=== PATIENT | female | born 1975 | race Hispanic/Latino ===

== ENCOUNTER → 2022-08-19 | Day surgery (SDC) | payer SELFPAY ==
[~2022-08-19] VITALS: Ht 144.8 cm; Wt 54.4 kg
[~2022-08-19] MED LIST: LIPITOR20 M1 PO; VITAMIN D22000 UNIT PO
[2022-08-19 11:23] VITALS: BP 121/68
== END | disposition home or self-care (01) | DRG 379 ==
LOC: ENDO 08:23 → ORM 09:00 → ENDO 10:10 → ORM 10:20 → ENDO 10:20
PROVIDERS: ATTEND Surgery
PROC: 0DJD8ZZ Inspection of Lower Intestinal Tract, Via Natural or Artificial Opening Endoscopic (ICD-10-PCS; principal; 2022-08-19)
DX: K57.31 Diverticulosis of large intestine without perforation or abscess with bleeding (principal); K64.8 Other hemorrhoids; M06.9 Rheumatoid arthritis, unspecified; Z87.19 Personal history of other diseases of the digestive system